=== PATIENT | female | born 1980 | race Caucasian/White ===

== ENCOUNTER 2018-08-31 13:43 | Inpatient (IN) | payer MEDICAID ==
[2018-08-31 14:52] LABS: ADD MAN DIFF? NO
[2018-08-31 14:57] LABS: BASOPHILS % 0.2 % (0.0-2.0); HEMATOCRIT 38.2 % (37.0-47.0); HEMOGLOBIN 13.2 g/dl (12.0-16.0); LYMPHOCYTES # 1.1 10^3/ul (0.8-2.9); LYMPHOCYTES % 9.1 % (15.0-51.0); MEAN CORPUSCULAR HEMOGLOBIN 29.7 pg (29.0-33.0); MEAN CORPUSCULAR HGB CONC 34.6 g/dl (32.0-37.0); MEAN PLATELET VOLUME 10.2 fl (7.4-10.4); MONOCYTE # 0.8 10^3/ul (0.3-0.9); MONOCYTES % 6.7 % (0.0-11.0); NEUTROPHIL # 10.3 10^3/ul (1.6-7.5); NEUTROPHILS % 83.7 % (39.0-77.0); PLATELET COUNT 214 10^3/UL (140-415); RED BLOOD COUNT 4.44 10^6/ul (4.20-5.40); RED CELL DISTRIBUTION WIDTH 11.9 % (11.5-14.5)
[2018-08-31 14:57] LABS: WHITE BLOOD COUNT 12.3 10^3/ul (4.8-10.8)
[2018-08-31] MEDS: IBUPROFEN 600 MG TAB PO (15:07)
[2018-08-31] MEDS: SODIUM CHLORIDE 0.9% 1L BAG IV* (15:07)
[2018-08-31] MEDS: LORAZEPAM 2 MG INJ IV (15:07)
[2018-08-31] MEDS: CEFTRIAXONE 1 GM/50 ML (PMX) 50 ML IVPB (15:08)
[2018-08-31 15:16] LABS: ALANINE AMINOTRANSFERASE 16 IU/L (13-69); ALBUMIN 4.6 g/dl (3.3-4.9); ALBUMIN/GLOBULIN RATIO 1.31; ALKALINE PHOSPHATASE 59 IU/L (42-121); ANION GAP 14 (5-13); ASPARTATE AMINO TRANSFERASE 32 IU/L (15-46); BILIRUBIN,INDIRECT 0.9 mg/dl (0-1.1); BILIRUBIN,TOTAL 0.9 mg/dl (0.2-1.3); BLOOD UREA NITROGEN 11 mg/dl (7-20); C-REACTIVE PROTEIN 1.1 mg/dl (0.0-0.9); CALCIUM 9.6 mg/dl (8.4-10.2); CARBON DIOXIDE 22 mmol/L (21-31); CHLORIDE 103 mmol/L (97-110); CREATININE 0.53 mg/dl (0.44-1.00); Estimated GFR > 60 mL/min (>60); GLUCOSE 118 mg/dl (70-220); LIPASE 95 U/L (23-300); POTASSIUM 3.9 mmol/L (3.5-5.1); SODIUM 139 mmol/L (135-144); TOTAL PROTEIN 8.1 g/dl (6.1-8.1)
[2018-08-31 15:17] LABS: INR 0.97; PARTIAL THROMBOPLASTIN TIME 23.9 Sec (23.0-35.0)
[2018-08-31 15:24] LABS: TROPONIN-I < 0.012 ng/ml (0.000-0.120)
[2018-08-31 15:54] LABS: ADD UMIC YES; UR ASCORBIC ACID NEGATIVE (NEGATIVE); UR BACTERIA FEW /HPF (NONE SEEN); UR BILIRUBIN (Dip) NEGATIVE (NEGATIVE); UR BLOOD (Dip) 2+ mg/dL (NEGATIVE); UR CLARITY CLOUDY (CLEAR); UR COLOR YELLOW (YELLOW); UR GLUCOSE (Dip) NEGATIVE (NEGATIVE); UR KETONES (Dip) TRACE mg/dL (NEGATIVE); UR LEUKOCYTE ESTERASE (Dip) 2+ Leu/ul (NEGATIVE); UR NITRITE (Dip) NEGATIVE (NEGATIVE); UR RBC 17 /HPF (0-5); UR SPECIFIC GRAVITY (Dip) 1.011 (1.003-1.030); UR SQUAMOUS EPITHELIAL CELL MANY /HPF (FEW); UR TOTAL PROTEIN (Dip) NEGATIVE (NEGATIVE); UR UROBILINOGEN (Dip) NEGATIVE (NEGATIVE); UR WBC 9 /HPF (0-5)
[2018-08-31 17:59] LABS: LACTIC ACID 1.7 mmol/L (0.5-2.0)
[2018-08-31] MEDS ORDERED: MAGNESIUM HYDROXIDE 30ML CUP PO (18:30)
[2018-08-31] MEDS ORDERED: NITROGLYCERIN (SL) 0.4 MG TAB SL (18:30)
[2018-08-31] MEDS ORDERED: ALBUTEROL/IPRATROPIUM (NEB) 3 ML AMP HHN (18:30)
[2018-08-31] MEDS ORDERED: NACL 0.9% 3 ML SYG IV (18:30)
[2018-08-31] MEDS ORDERED: morphine 2 MG INJ IV (18:30)
[2018-08-31] MEDS ORDERED: NA PHOSPHATE/BIPHOS 133 ML ENEMA PR (18:30)
[2018-08-31] MEDS ORDERED: LORAZEPAM 2 MG INJ IV (18:30)
[2018-08-31] MEDS ORDERED: DOCUSATE SODIUM 100 MG CAP PO (18:30)
[2018-08-31] MEDS: SOD CHLORIDE 0.9% 1,000 ML IV ×2 (18:41→21:57)
[2018-08-31] MEDS: HYDROCODONE/APAP (5/325) TAB PO (18:57)
[2018-08-31 20:16] LABS: TROPONIN-I < 0.012 ng/ml (0.000-0.120)
[2018-08-31 20:20] LABS: FREE T4 (FREE THYROXINE) 1.01 ng/dl (0.79-2.35); FREE T4 (FREE THYROXINE) 1.04 ng/dl (0.79-2.35)
[2018-08-31 20:20] LABS: FREE T3 3.36 pg/ml (2.77-5.27)
[2018-08-31 20:34] LABS: THYROID STIMULATING HORMONE 0.418 MIU/L (0.465-4.680)
[2018-08-31 21:49] LABS: LACTIC ACID 0.8 mmol/L (0.5-2.0)
[2018-08-31] MEDS ORDERED: HEPARIN 5,000 UNIT/0.5 ML VIAL (22:00)
[2018-08-31] MEDS: HEPARIN 5,000 UNIT/1 ML VIAL SC (22:01)
[2018-08-31] MEDS: ACETAMINOPHEN 325 MG TAB PO (22:22)
[2018-09-01] MEDS: PIPER-TAZO 3.375 GM IV (PMX) 100 ML IVPB ×4 (00:24→17:50)
[2018-09-01 01:39] LABS: LACTIC ACID 3.9 mmol/L (0.5-2.0)
[2018-09-01 01:48] LABS: TROPONIN-I < 0.012 ng/ml (0.000-0.120)
[2018-09-01] MEDS: SOD CHLORIDE 0.9% 1,000 ML IV ×4 (03:47→15:28)
[2018-09-01] MEDS: ACETAMINOPHEN 325 MG TAB PO ×2 (04:33→10:28)
[2018-09-01] MEDS: PANTOPRAZOLE (EC) 40 MG TAB PO (05:44)
[2018-09-01 05:48] LABS: ADD MAN DIFF? NO
[2018-09-01 05:57] LABS: BASOPHILS % 0.3 % (0.0-2.0); EOSINOPHILS % 0.7 % (0.0-7.0); HEMATOCRIT 31.7 % (37.0-47.0); HEMOGLOBIN 10.6 g/dl (12.0-16.0); LYMPHOCYTES # 1.4 10^3/ul (0.8-2.9); LYMPHOCYTES % 23.8 % (15.0-51.0); MEAN CORPUSCULAR HEMOGLOBIN 29.3 pg (29.0-33.0); MEAN CORPUSCULAR HGB CONC 33.4 g/dl (32.0-37.0); MEAN CORPUSCULAR VOLUME 87.6 fl (82.0-101.0); MEAN PLATELET VOLUME 10.2 fl (7.4-10.4); MONOCYTE # 0.9 10^3/ul (0.3-0.9); NEUTROPHIL # 3.5 10^3/ul (1.6-7.5); PLATELET COUNT 159 10^3/UL (140-415); RED BLOOD COUNT 3.62 10^6/ul (4.20-5.40); RED CELL DISTRIBUTION WIDTH 12.1 % (11.5-14.5)
[2018-09-01 05:57] LABS: WHITE BLOOD COUNT 5.8 10^3/ul (4.8-10.8)
[2018-09-01 06:47] LABS: LACTIC ACID 0.7 mmol/L (0.5-2.0)
[2018-09-01 07:01] LABS: TROPONIN-I < 0.012 ng/ml (0.000-0.120)
[2018-09-01 07:11] LABS: ANION GAP 8 (5-13); BLOOD UREA NITROGEN 5 mg/dl (7-20); CALCIUM 7.2 mg/dl (8.4-10.2); CARBON DIOXIDE 22 mmol/L (21-31); CHLORIDE 112 mmol/L (97-110); CREATININE 0.41 mg/dl (0.44-1.00); Estimated GFR > 60 mL/min (>60); GLUCOSE 86 mg/dl (70-220); MAGNESIUM 1.7 mg/dl (1.7-2.5); PHOSPHORUS 2.8 mg/dl (2.5-4.9); SODIUM 142 mmol/L (135-144)
[2018-09-01 07:15] LABS: CHOL/HDL RATIO 2.6 RATIO; HDL CHOLESTEROL 46 mg/dl (34-82); LDL CHOLESTEROL,CALCULATED 64 mg/dl; TRIGLYCERIDES 49 mg/dl (0-149)
[2018-09-01 07:15] LABS: CHOLESTEROL 120 mg/dl (100-200)
[2018-09-01 07:26] LABS: THYROID STIMULATING HORMONE 0.739 MIU/L (0.465-4.680)
[2018-09-01] MEDS ORDERED: HEPARIN 5,000 UNIT/0.5 ML VIAL ×2 (08:52→20:00)
[2018-09-01 09:11] LABS: HEMOGLOBIN A1C 5.1 % (0-5.9)
[2018-09-01] MEDS: HEPARIN 5,000 UNIT/1 ML VIAL SC ×2 (09:11→20:29)
[2018-09-01] MEDS: INFLUENZA VIRUS VACCINE 0.5 ML (DISPENSING) IM* (10:00)
[2018-09-01] MEDS: ONDANSETRON 4 MG INJ IV (10:28)
[2018-09-01 11:50] LABS: LACTIC ACID 1.2 mmol/L (0.5-2.0)
[2018-09-01] MEDS: POTASSIUM CHLORIDE (SR) 20 MEQ TAB PO (13:24)
[2018-09-01 14:54] LABS: LACTIC ACID 2.2 mmol/L (0.5-2.0)
[2018-09-01 15:23] LABS: HAAIG REFLEX REFLEX FILED
[2018-09-01 16:02] LABS: HEPATITIS B SURFACE ANTIGEN NEGATIVE (NEGATIVE)
[2018-09-01 16:19] LABS: HEPATITIS B CORE ANTIBODY NEGATIVE (NEGATIVE); HEPATITIS C VIRAL ANTIBODY NEGATIVE (NEGATIVE); HIV 1&2 ANTIBODY NEGATIVE (NEGATIVE)
[2018-09-01] MEDS: HYDROCODONE/APAP (5/325) TAB PO (20:34)
[2018-09-02] MEDS: PIPER-TAZO 3.375 GM IV (PMX) 100 ML IVPB ×3 (00:45→12:36)
[2018-09-02] MEDS: SOD CHLORIDE 0.9% 1,000 ML IV ×2 (02:35→08:40)
[2018-09-02] MEDS: PANTOPRAZOLE (EC) 40 MG TAB PO (05:10)
[2018-09-02 05:21] LABS: ADD MAN DIFF? NO
[2018-09-02 05:27] LABS: BASOPHILS % 0.2 % (0.0-2.0); EOSINOPHILS # 0.1 10^3/ul (0.0-0.5); HEMATOCRIT 31.8 % (37.0-47.0); HEMOGLOBIN 10.8 g/dl (12.0-16.0); LYMPHOCYTES # 2.1 10^3/ul (0.8-2.9); LYMPHOCYTES % 42.7 % (15.0-51.0); MEAN CORPUSCULAR HEMOGLOBIN 29.9 pg (29.0-33.0); MEAN CORPUSCULAR VOLUME 88.1 fl (82.0-101.0); MEAN PLATELET VOLUME 9.9 fl (7.4-10.4); MONOCYTE # 0.6 10^3/ul (0.3-0.9); MONOCYTES % 12.3 % (0.0-11.0); NEUTROPHIL # 2.2 10^3/ul (1.6-7.5); NEUTROPHILS % 43.8 % (39.0-77.0); PLATELET COUNT 164 10^3/UL (140-415); RED BLOOD COUNT 3.61 10^6/ul (4.20-5.40); RED CELL DISTRIBUTION WIDTH 12.4 % (11.5-14.5)
[2018-09-02 05:51] LABS: ANION GAP 8 (5-13); BLOOD UREA NITROGEN 4 mg/dl (7-20); CALCIUM 7.9 mg/dl (8.4-10.2); CARBON DIOXIDE 24 mmol/L (21-31); CHLORIDE 109 mmol/L (97-110); CREATININE 0.44 mg/dl (0.44-1.00); Estimated GFR > 60 mL/min (>60); GLUCOSE 89 mg/dl (70-220); POTASSIUM 3.3 mmol/L (3.5-5.1); SODIUM 141 mmol/L (135-144)
[2018-09-02] MEDS ORDERED: HEPARIN 5,000 UNIT/0.5 ML VIAL (08:30)
[2018-09-02] MEDS: HEPARIN 5,000 UNIT/1 ML VIAL SC (08:35)
[2018-09-02] MEDS: POTASSIUM CHLORIDE (SR) 20 MEQ TAB PO (09:36)
[2018-09-02 13:03] LABS: LACTIC ACID 1.1 mmol/L (0.5-2.0)
== END 2018-09-02 14:55 | disposition home or self-care (01) | DRG 872 ==
LOC: E/R 13:43 → 2NE 17:47
DX: A41.9 Sepsis, unspecified organism (principal); N39.0 Urinary tract infection, site not specified; R51 Headache
CPT/HCPCS: 71045; 80048; 80053; 80061; 81001; 83036; 83605; 83690; 83735; 84100; 84439; 84443; 84481; 84484; 85025; 85610; 85730; 86140; 86703; 86704; 86709; 86803; 87040; 87086; 87340; 87400; 90686; 93005; 96374; 96375; 99291-25